=== PATIENT | male | born 1945 | race Caucasian/White ===

== ENCOUNTER 2019-11-09 10:22 | Emergency (ER) | payer OTHER ==
--- NOTE | 2019-11-09 10:54 | UC ---
Dizzy HPI HPI Summary: 74 yo male with a long hx of syncopal episodes has had two in past two weeks last one about a week ago feels his normal self Has had a 10 pound wt loss in past month or two and is in the process of having a colonscopy scehule no change in bowel habits no abd pain no cp or sob no palpitations no hx anemia - History Of Current Complaint Chief Complaint: UCGeneralIllness Stated Complaint: DIZZY/PASSING OUT Time Seen by Provider: 11/09/19 10:27 Hx Obtained From: Patient Onset/Duration: Sudden Onset Timing: Seconds Severity Currently: None Pain Intensity: 0 Pain Scale Used: 0-10 Numeric Aggravating Factor(s): Position Change Alleviating Factor(s): Other - spontaneously resolves Associated Signs And Symptoms: Positive: Negative - Allergies/Home Medications Allergies/Adverse Reactions: Allergies Allergy/AdvReac Type Severity Reaction Status Date / Time bee sting Allergy swelling , Uncoded 11/09/19 10:45 syncope Home Medications: Home Medications Allopurinol TAB* [Zyloprim 100 MG TAB*] 1 dose PO QAM 11/09/19 [History Confirmed 11/09/19] Atorvastatin* [Lipitor*] 1 dose PO DAILY 11/09/19 [History Confirmed 11/09/19] Cholecalciferol TAB* [Vitamin D TAB*] 3,000 unit PO DAILY 11/09/19 [History Confirmed 11/09/19] Pantoprazole TAB * [Protonix TAB*] 40 mg PO DAILY 11/09/19 [History Confirmed ] Rivaroxaban [Xarelto] 1 dose PO DAILY 11/09/19 [History Confirmed 11/09/19] PMH/Surg Hx/FS Hx/Imm Hx Previously Healthy: Yes Cardiovascular History: Hypertension Neurological History: CVA - Surgical History Surgical History: Yes Surgery Procedure, Year, and Place: colon polyps removed 2012, gastric sphinter stretched - Family History Known Family History: Positive: Hypertension - Social History Alcohol Use: Occasionally Substance Use Type: None Smoking Status (MU): Former Smoker Review of Systems All Other Systems Reviewed And Are Negative: Yes Constitutional: Positive: Negative Skin: Positive: Negative Eyes: Positive: Negative ENT: Positive: Negative Respiratory: Positive: Negative Cardiovascular: Positive: Negative Gastrointestinal: Positive: Negative Genitourinary: Positive: Negative Motor: Positive: Negative Neurovascular: Positive: Negative Musculoskeletal: Positive: Negative Neurological: Positive: Negative Psychological: Positive: Negative Physical Exam Triage Information Reviewed: Yes Appearance: Well-Appearing, No Pain Distress, Well-Nourished Vital Signs: Initial Vital Signs Temp 98 F 11/09/19 10:30 Pulse 86 11/09/19 10:30 Resp 20 11/09/19 10:30 BP 173/77 11/09/19 10:30 Pulse Ox 100 11/09/19 10:30 Vital Signs Reviewed: Yes Eyes: Positive: Conjunctiva Clear ENT: Negative: Hearing grossly normal, Nasal congestion, Nasal drainage, Trismus , Hoarse voice Neck: Positive: Supple, Nontender, No Lymphadenopathy Respiratory: Positive: Lungs clear, Normal breath sounds, No respiratory distress, No accessory muscle use Cardiovascular: Positive: RRR, No Murmur Abdomen Description: Positive: Nontender, No Organomegaly, Other: - ? fullness RLQ Bowel Sounds: Positive: Present Musculoskeletal: Positive: No Edema Neurological: Positive: Alert Psychological Exam: Normal Skin Exam: Normal Diagnostics - EKG Cardiac Rate: NL Cardiac Rhythm: Sinus: Normal Ectopy: PACs ST Segment: Normal Dizzy Course/Dx - Course Course Of Treatment: neg orthostatics rectal exam: no mass/stool guaiac (-) PT REFUSES TO GO TO ER FOR A HIGHER LEVEL OF CARE - Differential Dx/Diagnosis Provider Diagnosis: History of syncope, Weight loss Discharge ED - Sign-Out/Discharge Documenting (check all that apply): Patient Departure All imaging exams completed and their final reports reviewed: No Studies - Discharge Plan Condition: Stable Disposition: HOME Patient Education Materials: Syncope (ED) Additional Instructions: [facility] for further investigation of you fainting spells and weight loss If you change your mind go to the ER for further evaluation - Billing Disposition and Condition Condition: STABLE Disposition: Home
[2019-11-09 11:37] VITALS: BP 144/90
[2019-11-09 19:15] LABS: ABS Basophils 0.1 10^3/ul (0-0.2); ABS Eosinophils 0.3 10^3/ul (0-0.6); ABS Lymphocytes 1.3 10^3/ul (1.0-4.8); ABS Monocytes 0.5 10^3/ul (0-0.8); ABS Neutrophils 5.1 10^3/ul (1.5-7.7); Eosinophil % 3.6 %; Hematocrit 37 % (42-52); Hemoglobin 12.1 g/dL (14.0-18.0); Lymphocyte % 17.7 %; Mean Corpuscular HGB Conc 33 g/dL (31-36); Mean Corpuscular Hemoglobin 25 pg (27-31); Mean Corpuscular Volume 76 fL (80-94); Mean Platelet Volume 8.1 fL (7.4-10.4); Nucleated Red Blood Cells % 0.1; Platelet Count 301 10^3/uL (150-450); Red Blood Count 4.88 10^6 /uL (4.18-5.48); Red Cell Distribution Width 18 % (10-15); White Blood Count 7.1 10^3/uL (3.5-10.8)
== END 2019-11-09 12:10 | disposition home or self-care (01) ==
LOC: UCCORT 10:22
DX: R55 Syncope and collapse (principal); I10 Essential (primary) hypertension; R63.4 Abnormal weight loss; Z91.030 Bee allergy status; Z87.891 Personal history of nicotine dependence
CPT/HCPCS: 36415; 82272; 85025; 93005; 99201; G0463